=== PATIENT | female | born 1970 | race Caucasian/White ===

== ENCOUNTER 2016-07-03 08:40 | Day surgery (SDC) | payer BC ==
[~2016-07-03] VITALS: Ht 160 cm; Wt 94.5 kg
[~2016-07-03 08:40] MED LIST: ADVAIR 250/28 DISKU1 IH; BENICAR 20MG TA20 MG PO; BENICAR/HCTZ; BENICAR20 MG PO; BETAPACE 120MG120 MG PO; BUPROPRION; CARDIZEM CD 12120 MG PO; CARDIZEM30 MG PO; CEFTIN 250250 MG/TAB PO; CLARINEX5 MG PO; CLEOCIN HCL300 MG PO; DOXYCYCLINE 10100 MG PO; HCTZ 25MG TAB25 MG PO; HCTZ 25MG25 MG PO; HYDROCHLOR50 MG PO; LASIX 20MG TABL20 MG PO; LOPRESSOR 225 MG/TAB PO; MULTIVITAMIN1 TA1 PO; NEXIUM 40MG40 MG PO; NORCO 325 MG-51 TAB PO; PHENERGAN 25 TA25 MG PO; PHENERGAN W/CO120 ML PO; PLAVIX 75MG TAB75 MG PO; PRILOSEC 20MG20 MG PO; PROMETHAZINE V473 M2 PO; PROMETHAZINE12.5 M5 PO; PROVENTIL0.09 MG/A1 IH; PROVENTIL0.09 MG/Ac IH; RT ADVAIR 228 DISKUS IH; SINGULAIR 110 MG/TAB PO; SINGULAIR10 MG PO; VITAMIN C500 MG PO; VITAMIN D1000 IU PO; WELLBUTRIN PO; WELLBUTRIN XL300 MG PO; XANAX 0.5MG0.5 MG PO; XANAX0.5 MG PO; ZOCOR 40MG40 MG PO; ZOCOR40 MG PO
[2016-07-03 09:31] VITALS: BP 144/86; PULSE 70; TEMP 98.1
[2016-07-03] MEDS ORDERED: MULTIPLE VITAMI1 CAP PO (09:36)
[2016-07-03] MEDS ORDERED: OSCAL 500 TAB500 MG PO (09:38)
[2016-07-03] MEDS ORDERED: TYLENOL 325MG325 MG PO (09:38)
[2016-07-03] MEDS ORDERED: ZYRTEC 10MG10 MG PO (09:39)
[2016-07-03] MEDS ORDERED: PROBIOTIC ACID1 EAC3 PO (09:39)
[2016-07-03 12:40] VITALS: BP 118/69; PULSE 70; TEMP 98.1
[2016-07-03] MEDS ORDERED: ZOFRAN ODT4 MG PO (12:40)
[2016-07-03] MEDS ORDERED: NORCO 325 MG-51 TAB PO (12:40)
[2016-07-03 12:50] VITALS: BP 116/64; PULSE 66
[2016-07-03 13:05] VITALS: BP 129/79; PULSE 67
== END 2016-07-03 13:40 | disposition home or self-care (01) ==
LOC: SDCO 08:40
DX: D17.22 Benign lipomatous neoplasm of skin and subcutaneous tissue of left arm (principal)
CPT/HCPCS: J0690; J1100; J2405; J2704; J3010; J7120

== ENCOUNTER → 2018-03-14 | Outpatient (CLI) | payer BC ==
[~2018-03-14] MED LIST changes: +MULTIPLE VITAMI1 CAP PO; +OSCAL 500 TAB500 MG PO; +PROBIOTIC ACID1 EAC3 PO; +TYLENOL 325MG325 MG PO; +ZOFRAN ODT4 MG PO; +ZYRTEC 10MG10 MG PO
== END ==
LOC: COL.RAD 14:01
DX: R59.0 Localized enlarged lymph nodes (principal)

== ENCOUNTER → 2018-03-28 | Outpatient (CLI) | payer BC ==
[~2018-03-28] VITALS: Ht 160 cm; Wt 89.0 kg
[~2018-03-28] MED LIST changes: +WELLBUTRIN XL300 M1 PO
[2018-03-28 10:09] VITALS: BP 139/101; PULSE 77
[2018-03-28 11:20] VITALS: BP 140/98; PULSE 79
== END ==
LOC: COL.RAD 09:09
DX: R59.0 Localized enlarged lymph nodes (principal)

== ENCOUNTER 2018-04-15 09:48 | Day surgery (SDC) | payer BC ==
[2018-04-15 12:00] VITALS: BP 114/66; PULSE 56; TEMP 98.4
[2018-04-15] MEDS ORDERED: NORCO 325 MG-51 TAB PO (13:32)
[2018-04-15] MEDS ORDERED: MOTRIN 600600 MG/TAB PO (13:32)
[2018-04-15 13:55] VITALS: BP 91/51; PULSE 59; TEMP 97.3
[2018-04-15 14:10] VITALS: BP 84/51; PULSE 55
[2018-04-15 14:25] VITALS: BP 88/50; PULSE 58
[2018-04-15 14:40] VITALS: BP 114/75; PULSE 55
== END 2018-04-15 15:00 | disposition home or self-care (01) ==
LOC: SDCO 09:48
DX: R22.1 Localized swelling, mass and lump, neck (principal); L90.5 Scar conditions and fibrosis of skin; I10 Essential (primary) hypertension; F41.9 Anxiety disorder, unspecified; K21.9 Gastro-esophageal reflux disease without esophagitis; F90.9 Attention-deficit hyperactivity disorder, unspecified type; Z90.49 Acquired absence of other specified parts of digestive tract; Z90.710 Acquired absence of both cervix and uterus; Z90.722 Acquired absence of ovaries, bilateral; Z90.79 Acquired absence of other genital organ(s); Z83.3 Family history of diabetes mellitus; Z82.49 Family history of ischemic heart disease and other diseases of the circulatory system; Z88.2 Allergy status to sulfonamides; Z88.8 Allergy status to other drugs, medicaments and biological substances
CPT/HCPCS: J0690; J1100; J1885; J2405; J2704; J2765; J3010; J7120

== ENCOUNTER 2021-05-31 10:17 | Outpatient (CLI) | payer BC ==
[~2021-05-31] VITALS: Ht 157.5 cm; Wt 90.9 kg
[~2021-05-31 10:17] MED LIST changes: +MOTRIN 600600 MG/TAB PO
[2021-05-31 11:13] VITALS: BP 160/120; PULSE 82; TEMP 98.2
[2021-05-31 11:55] VITALS: BP 158/100; PULSE 73
[2021-05-31] MEDS ORDERED: INDERAL40 MG PO (12:05)
[2021-05-31 12:15] VITALS: BP 175/95; PULSE 72
[2021-05-31 12:45] VITALS: BP 188/99; PULSE 72
[2021-05-31 13:00] VITALS: BP 171/72; PULSE 80
[2021-05-31 13:30] VITALS: BP 148/109; PULSE 81
== END 2021-05-31 15:18 ==
LOC: EUO 10:17
DX: U07.1 COVID-19 (principal); E66.9 Obesity, unspecified
CPT/HCPCS: M0245

== ENCOUNTER → 2022-04-25 | Outpatient (CLI) | payer BC ==
[~2022-04-25] MED LIST changes: +INDERAL40 MG PO
== END ==
LOC: COL.RAD 09:23
DX: Z82.49 Family history of ischemic heart disease and other diseases of the circulatory system (principal)